=== PATIENT | female | born 1965 ===

== ENCOUNTER 2016-08-04 20:44 | Emergency (ER) | payer OTHER ==
[2016-08-04] MEDS ORDERED: ALBUTEROL/IPRATROPIUM 1 VIAL SOL INH ONE (20:53)
[2016-08-04] MEDS ORDERED: SOLUMEDROL 125 MG/2 ML 125 MG/2 ML PDS IM ONE (20:53)
[2016-08-04] MEDS ORDERED: SOLUMEDROL 125 MG/2 ML 125 MG/2 ML PDS ONE (21:09)
[2016-08-04] MEDS ORDERED: DOXYCYCLINE 100 MG TAB PO SCH (21:15)
[2016-08-04 21:17] VITALS: BP 123/70; PULSE 105; RESP 34; TEMP 96.9; O2SAT 96
[2016-08-04] MEDS ORDERED: DOXYCYCLINE 100 MG TAB ONE (21:17)
== END 2016-08-04 21:32 | disposition home or self-care (01) | DRG 190 ==
LOC: ED 20:44
DX: J44.0 Chronic obstructive pulmonary disease with (acute) lower respiratory infection (principal); J18.9 Pneumonia, unspecified organism; Z72.0 Tobacco use
CPT/HCPCS: 96372; 99283; 99284; J2930; J7620